=== PATIENT | female | born 1950 | race Two or more races ===

== ENCOUNTER 2021-05-26 22:58 | Inpatient (IN) | payer MEDICARE, OTHER ==
[~2021-05-26] VITALS: Ht 154.9 cm; Wt 59.9 kg
--- NOTE | 2021-05-26 23:10 | NUR ---
PT WINTER BENTLEY FROM [facility] FOR MEDICAL CLEARANCE. PT A/O X2, DENIES ANY PAIN/DISCOMFORT. NO SOB OR LABORED BREATHING. DENIES SI, NO AUDIO OR VISUAL HALLUCINATIONS. NOTED TO BE CALM AND COOPERATIVE. DR. JIN AT BEDSIDE, MSE IN PROGRESS.
[2021-05-27] MEDS ORDERED: CITA20TA16 PO (00:04)
[2021-05-27] MEDS ORDERED: OLAN5TAB70 PO (00:04)
[2021-05-27 00:22] LABS: *BILIRUBIN,URIN NEGATIVE (NEGATIVE); *BLOOD, URINE NEGATIVE (NEGATIVE); *CLARITY,URINE CLEAR (CLEAR); *COLOR,URINE YELLOW (YELLOW); *KETONES,URINE NEGATIVE (NEGATIVE); *UROBILINOGEN,URINE 0.2 E.U./dl (NORMAL); LEUKOCYTE ESTERASE ,URINE 1+ (NEGATIVE); NITRITE, URINE NEGATIVE (NEGATIVE); UGLUCOSE NEGATIVE (NEGATIVE)
[2021-05-27 00:23] LABS: MEAN CORPUSCULAR HEMOGLOBIN 32.7 uug (24.7-32.8); MEAN CORPUSCULAR VOLUME 96.6 fL (75.5-95.3); PLATELET COUNT (AUTO) 269 K/uL (179-408)
[2021-05-27 00:27] LABS: ETHANOL < 3 MG/DL (0-0)
[2021-05-27 00:32] LABS: ALANINE AMINOTRANSFERASE 87 U/L (14-59); ALKALINE PHOSPHATASE 81 U/L (50-136); ASPARTATE AMINOTRANSFERASE 56 U/L (15-37); BILIRUBIN,DIRECT 0.1 mg/dL (0.0-0.2); BILIRUBIN,TOTAL 0.3 mg/dL (0.2-1.0); CARBON DIOXIDE 28 mmol/L (21-32); CHLORIDE 105 mmol/L (98-107); CREATININE 0.6 mg/dL (0.6-1.3); GLUCOSE 110 mg/dL (74-106); TOTAL PROTEIN, SERUM 8.3 g/dL (6.4-8.2); UREA NITROGEN, BLOOD 19 mg/dL (7-18)
[2021-05-27 00:33] LABS: BACTERIA,URINE FEW /HPF (NONE SEEN); RBC,URINE 0-3 /HPF (0-3); SQUAMOUS EPITHELIAL CELL,UR MODERATE /HPF (NONE SEEN)
[2021-05-27 00:34] LABS: ACETAMINOPHEN < 2.0 ug/mL (10-30)
[2021-05-27 00:36] LABS: *AMPHETAMINE, URINE NEGATIVE (NEGATIVE); *CANNABINOID, URINE NEGATIVE (NEGATIVE); *COCCAINE, URINE NEGATIVE (NEGATIVE); *OPIATE, URINE NEGATIVE (NEGATIVE); *PHENCYCLIDINE SCREEN,URINE NEGATIVE (NEGATIVE)
[2021-05-27 00:40] LABS: THYROID STIMULATING HORMONE 6.589 mIU/mL (0.358-3.740)
--- NOTE | 2021-05-27 01:40 | NUR ---
Patient is resting comfortably in bed, watching TV.
[2021-05-27] MEDS ORDERED: NITROFURANTOIN/NITROFURAN MAC 100 MG CAPSULE PO ONE ×2 (02:15→02:27)
--- NOTE | 2021-05-27 02:28 | NUR ---
GAVE REPORT TO WESTON MIJARES.
[2021-05-27] MEDS ORDERED: BLOOD SUGAR DIAGNOSTIC 1 EACH STRIP VI ONE (03:15)
[2021-05-27] MEDS ORDERED: MAGNESIUM HYDROXIDE 30 ML LIQUID UDC PO PRN (03:15)
[2021-05-27 03:16] VITALS: BP 107/81
[2021-05-27] MEDS: LORAZEPAM 1 MG TABLET PO PRN (03:52)
--- NOTE | 2021-05-27 04:16 | NUR ---
GPS: Admitted to unit earlier a 71 yr.old female who was medically cleared in our E.R. Pt.is under the care of /. Pt.is on a 72 hour hold for GD. Pt.lives at home alone and has been walking into traffic,has disorganized thoughts,and unable to care for self,per hold. Pt.is AOx1-2. Uncooperative,labile,easily irritable,and appears to be responding to internal stimuli. Refused body check despite explanation of importance. Personal belongings list completed. Pt's rights handbook given. Unit rules explained. Re-directed and re-assured prn. Showered and was given Ativan 1mg PO for anxiety. Will continue to monitor. Fall precautions initiated.
--- NOTE | 2021-05-27 06:01 | NUR ---
GPS: Pt.hardly slept tonight. Up on rashi-chair in front of nurses station for safety. Less anxious,irritable,labile. Responds to internal stimuli. Re-directed prn. Assisted in going to the bathroom for elimination purposes. Needs attended. Will continue to monitor.
[2021-05-27 07:30] VITALS: BP 101/77
[2021-05-27] MEDS: NICOTINE 21 MG/24HR PATCH TD SCH (08:13)
[2021-05-27] MEDS: ESCITALOPRAM OXALATE 10 MG TABLET PO SCH (10:58)
--- NOTE | 2021-05-27 11:13 | NUR ---
CHEPE PC Hearing: Patient had 5250 probable cause hearing today and it was upheld for grave disability.
--- NOTE | 2021-05-27 11:53 | NUR ---
CHEPE Corporate Treasury Analystcentrifugal casting machine tender: CHEPE spoke with patient's adult protective caseworker Isael from [facility] ([phone]) and collected collateral information. Isael stated that the patient lives alone and has no social support. Isael stated patient dis-enrolled herself from services. Patient has a son who lives in a different state and is not involved in her care Fritz ([phone]), SW left a voicemail for him as well. Isael and this SW discussed safest discharge plan for the patient would be a SNF as Isael stated patient is being evicted from her home. CHEPE will coordinate appropriate SNF placement for the patient in [facility] and Isael stated if they find placement in [place] they would transfer her back there.
--- NOTE | 2021-05-27 14:36 | NUR ---
CHEPE Initial Discharge Plan: Patient resides at home [address] [place], [place] [address] alone. Pt is unable to care for herself alone. CHEPE spoke with patient's family preservation caseworker from [facility] ([phone]) and discussed patient will need SNF placement. CHEPE will continue to work with patient and MD to ensure a safe and proper discharge plan.
[2021-05-27] MEDS: NITROFURANTOIN/NITROFURAN MAC 100 MG CAPSULE PO SCH ×2 (16:03→23:04)
[2021-05-27 16:29] VITALS: BP 104/77
--- NOTE | 2021-05-27 16:30 | NUR ---
Gps/Interactive Digital Media Specialist- Left message for Shani Bui DNP, regarding results of patient's UA., orders received. Patient was instructed to drink adequate fluid intake.. Ambulates around uses FWW.
[2021-05-27 20:00] VITALS: BP 128/79
[2021-05-27] MEDS: QUETIAPINE FUMARATE 25 MG TABLET PO SCH (20:26)
[2021-05-28] MEDS: ZOLPIDEM 5 MG TABLET PO PRN ×2 (00:45→21:18)
--- NOTE | 2021-05-28 06:43 | NUR ---
GPS: Pt.slept 7.45 last night. No adverse reactions noted from atb.therapy. Less anxious and more re-directable. No increased agitation noted. Fall precautions observed.
[2021-05-28 08:21] VITALS: BP 105/66
[2021-05-28] MEDS: NICOTINE 21 MG/24HR PATCH TD SCH (08:23)
[2021-05-28] MEDS: NITROFURANTOIN/NITROFURAN MAC 100 MG CAPSULE PO SCH ×2 (08:23→20:08)
[2021-05-28] MEDS: ESCITALOPRAM OXALATE 10 MG TABLET PO SCH (08:23)
--- NOTE | 2021-05-28 13:12 | NUR ---
GPS: Nursing Notes: Mood Disturbance: Manic: Labile: Patient is awake and responding to her name, needs prompting to participate in therapeutic groups, compliant with her medications, A/Ox2, impaired judgment, gets easily irritable when redirected, ambulatory, but resistant to use the fww, redirected and reoriented during shift, loud and rambling speech at times, unable to formulate a viable plan for self care, verbally castillo for safety, denies SI/HI, unkempt appearance, continue to monitor for safety, continue with treatment plan.
[2021-05-28 16:34] VITALS: BP 133/79
[2021-05-28] MEDS: LORAZEPAM 1 MG TABLET PO PRN (19:50)
[2021-05-28 20:00] VITALS: BP 111/75
[2021-05-28] MEDS: QUETIAPINE FUMARATE 25 MG TABLET PO SCH (20:08)
[2021-05-29] MEDS: LORAZEPAM 1 MG TABLET PO PRN ×2 (01:59→21:54)
--- NOTE | 2021-05-29 02:22 | NUR ---
Received patient at the start of the shift, mumbling and stumbling around. Assisted patient to a Miriam chair for safety. The patient was awake and knew she was in the [facility], but that was the extent of any meaningful conversation. This patient is very forgetful and continues to disobey the unit rules and acts impulsively. At one point, the patient was having a yelling match with the other patient in her room. They were d/t the fact they were arguing and keeping each other awake during the night with non stop talking with each other and themselves. Food and fluids were provided during the shift as well as frequent trips to the bathroom. The patient was unable to stay in bed and kept getting up. In order to keep the patient safe, again she went to a chair at the station. Medications are having little to no affect on this patient. Safety stratiges are in place, redirection and reorientation provided frequently.Monitoring for behavior escalation, hallucinations and continuing with the plan of care. Encouraging patient to use the FWW when ambulating at all times.
[2021-05-29 07:30] VITALS: BP 113/68
[2021-05-29] MEDS: ESCITALOPRAM OXALATE 10 MG TABLET PO SCH (08:25)
[2021-05-29] MEDS: NITROFURANTOIN/NITROFURAN MAC 100 MG CAPSULE PO SCH ×2 (08:25→21:54)
[2021-05-29] MEDS: NICOTINE 21 MG/24HR PATCH TD SCH (08:25)
[2021-05-29 15:52] VITALS: BP 134/81
--- NOTE | 2021-05-29 17:20 | NUR ---
GPS: Nursing Notes: Thought Disorder: Patient is awake and responding to her name, disoriented to time, stated "I don't know..", impaired judgment, believes that she is , "I am afraid.. I am going to loss my baby..", redirected and reoriented during shift, gets easily irritable when redirected, unable to formulate a viable plan for self care, responding to external stimuli by shouting when another patient is shouting, argumentative at times, continue to monitor for safety, continue with treatment plan.
[2021-05-29 20:02] VITALS: BP 126/71
[2021-05-29] MEDS: QUETIAPINE FUMARATE 25 MG TABLET PO SCH (21:54)
[2021-05-30] MEDS: ZOLPIDEM 5 MG TABLET PO PRN ×2 (01:30→21:43)
--- NOTE | 2021-05-30 06:21 | NUR ---
Pt is A+Ox2, restless, anxious, attention-seeking, and disorganized. Pt uses her FWW backwards and requires frequent reminders to use it correctly. Pt is delusional and believe she is , and somewhat hesitant to take her medications. Pt provided reality orientation as needed. Late in the shift, Pt pulled the fire alarm for no apparent reason, then yelled "I'm sorry!" repeatedly. Pt reminded of unit rules and administered Ambien 5mg to minimize restlessness and encourage sleep. Pt slept for 2 hours, then woke up and remained awake for the rest of the shift, though more redirectable. Denies SI, verbally contracts for safety. VS stable, denied pain.
[2021-05-30 08:13] VITALS: BP 126/79
[2021-05-30] MEDS: NICOTINE 21 MG/24HR PATCH TD SCH (08:21)
[2021-05-30] MEDS: NITROFURANTOIN/NITROFURAN MAC 100 MG CAPSULE PO SCH ×2 (08:21→20:02)
[2021-05-30] MEDS: ESCITALOPRAM OXALATE 10 MG TABLET PO SCH (08:21)
[2021-05-30 08:31] LABS: HEMATOCRIT 39.6 % (31.2-41.9); MEAN CORPUSCULAR HEMOGLOBIN 32.5 uug (24.7-32.8); PLATELET COUNT (AUTO) 250 K/uL (179-408)
[2021-05-30 08:51] LABS: ALANINE AMINOTRANSFERASE 94 U/L (14-59); ALKALINE PHOSPHATASE 102 U/L (50-136); ASPARTATE AMINOTRANSFERASE 59 U/L (15-37); BILIRUBIN,TOTAL 0.4 mg/dL (0.2-1.0); CARBON DIOXIDE 27 mmol/L (21-32); CHLORIDE 103 mmol/L (98-107); CREATININE 0.6 mg/dL (0.6-1.3); GLUCOSE 94 mg/dL (74-106); POTASSIUM 4.2 mmol/L (3.5-5.1); TOTAL PROTEIN, SERUM 8.6 g/dL (6.4-8.2); UREA NITROGEN, BLOOD 19 mg/dL (7-18)
--- NOTE | 2021-05-30 12:17 | NUR ---
GPS: Nursing Notes: Courtesy Call for Neurology Consultation: Per Dr. Yoon request, called Dr. Resendiz for neurology consultation, Dr. Resendiz would see the patient today or tomorrow, continue to monitor for safety, continue with treatment plan.
[2021-05-30 16:16] VITALS: BP 137/86
[2021-05-30] MEDS: LORAZEPAM 1 MG TABLET PO PRN ×2 (16:58→23:00)
[2021-05-30 19:55] VITALS: BP 115/58
[2021-05-30] MEDS: QUETIAPINE FUMARATE 100 MG TABLET PO SCH (20:02)
[2021-05-30] MEDS ORDERED: QUETIAPINE FUMARATE 25 MG TABLET PO SCH (21:00)
--- NOTE | 2021-05-30 23:00 | NUR ---
GPS: Pt.is anxious,restless,labile,attention-seeking and disorganized. Re-directed frequently. Ativan 1mg PO given at this time. Re-assured prn. Will continue to monitor.
--- NOTE | 2021-05-31 07:11 | NUR ---
GPS: Pt.slept for only 2.30 last night despite getting a sleeping pill for insomnia. Less anxious now and more re-directable. Still delusional and labile. Will continue to re-direct prn.
[2021-05-31 07:30] VITALS: BP 114/72
[2021-05-31] MEDS: NITROFURANTOIN/NITROFURAN MAC 100 MG CAPSULE PO SCH ×2 (08:19→20:04)
[2021-05-31] MEDS: ESCITALOPRAM OXALATE 10 MG TABLET PO SCH (08:19)
[2021-05-31] MEDS: NICOTINE 21 MG/24HR PATCH TD SCH (08:19)
--- NOTE | 2021-05-31 09:50 | NUR ---
CHEPE SNF Referral: CHEPE faxed patient's referral packet to [facility] ( ) attention to Esperanza for review.
--- NOTE | 2021-05-31 09:51 | NUR ---
CHEPE Culture Media Laboratory Assistantlive in companion: CHEPE spoke with patient's residential case manager Isael from [facility] ([phone]) and discussed updated discharge planning. Emigdio stated they are agreeable with placing the patient locally in [place] for SNF placement. SW will update Emigdio on placement.
--- NOTE | 2021-05-31 11:52 | NUR ---
GPS: Nursing Notes: Thought Disorder: Patient is awake and responding to her name, impaired judgment, disoriented, disorganized, believes that she is , "I am afraid... I don't want to loss my baby..", rubbing her abdomen when talking about her delusion, unable to formulate a viable plan for self care, putting napkins around her wrist and around her head, continue to monitor for safety, continue with treatment plan.
--- NOTE | 2021-05-31 12:11 | NUR ---
CHEPE PC Hearing: Patient had 5250 probable cause hearing today and it was upheld for grave disability.
[2021-05-31] MEDS: MAG HYDROX/AL HYDROX/SIMETH 30 ML LIQUID UDC PO PRN (13:26)
[2021-05-31] MEDS ORDERED: IBUPROFEN 200 MG TABLET PO PRN (15:00)
[2021-05-31 16:10] VITALS: BP 118/67
[2021-05-31] MEDS: LORAZEPAM 1 MG TABLET PO PRN (16:20)
[2021-05-31] MEDS: MIRTAZAPINE 15 MG TABLET PO SCH (20:04)
[2021-05-31] MEDS: QUETIAPINE FUMARATE 100 MG TABLET PO SCH (20:04)
[2021-05-31 22:55] VITALS: BP 126/70
[2021-06-01] MEDS: LORAZEPAM 1 MG TABLET PO PRN (03:49)
--- NOTE | 2021-06-01 03:50 | NUR ---
GPS: Pt.is awake,anxious,disorganized,intrusive and with labile mood. Easily irritable when being re-directed and when staff sets limits on her. Poor impulse control. Insight and judgement impaired. Safe environment provided. Ativan 1mg PO given. Will monitor effectiveness.
[2021-06-01 07:30] VITALS: BP 97/62
[2021-06-01] MEDS: NICOTINE 21 MG/24HR PATCH TD SCH (08:46)
[2021-06-01] MEDS: QUETIAPINE FUMARATE 25 MG TABLET PO SCH ×2 (10:46→16:39)
[2021-06-01 16:00] VITALS: BP 132/84
--- NOTE | 2021-06-01 18:34 | NUR ---
GPS: PT WITH EPISODE OF ACTING OUT. DANCING LIKE AND WALKING LIKE SLOW MOTION. PT WITH EPISODE OF LAYING ON THE FLOOR ON THE HALLWAY. VERBALLY ABUSIVE EPISODE NOTED WHEN PT APPROACHED OTHER PT. PT ALWAYS ASK FOR HER ANTI- DEPRESSION MEDICATION. COOPERATIVE WITH CARE AND COMPLIANT WITH MEDICATIONS. NO AGITATION NOTED.
[2021-06-01 20:03] VITALS: BP 116/62
[2021-06-01] MEDS: QUETIAPINE FUMARATE 100 MG TABLET PO SCH (20:17)
[2021-06-01] MEDS: MIRTAZAPINE 15 MG TABLET PO SCH (20:18)
[2021-06-01] MEDS: ZOLPIDEM 5 MG TABLET PO PRN (21:57)
[2021-06-02] MEDS: LORAZEPAM 1 MG TABLET PO PRN (01:18)
--- NOTE | 2021-06-02 04:54 | NUR ---
Pt very restless throughout the night, difficult to be redirected. Ambien and Ativan given without much affect. Denies SI or HI at this time. Compliant with all medications given, however is occasionally verbally abusive. No acute distress noted.
[2021-06-02 07:30] VITALS: BP 127/84
[2021-06-02] MEDS: NICOTINE 21 MG/24HR PATCH TD SCH (08:31)
[2021-06-02] MEDS: QUETIAPINE FUMARATE 25 MG TABLET PO SCH ×2 (08:31→17:03)
--- NOTE | 2021-06-02 09:39 | NUR ---
SW Orthotic Finish Grinding TechnicianHigher Level Teaching Assistant CHEPE spoke with patient's continuous pillowcase cutter Sharon from [facility] ([phone]) and discussed discharge planning. Sharon stated they are agreeable with placing the patient locally in [place] for SNF placement. CHEPE will update Sharon on placement.
--- NOTE | 2021-06-02 15:49 | NUR ---
GPS: SPOKE WITH PT SON ASHLEY FONTANEZ, INFORMED ABOUT PT CONDITION. PER SON, DID NOT GET A CALL BECAUSE HE HAS A NEW NUMBER WHICH IS . PT AND SON TALKED FOR A WHILE AND SON HAPPY TO KNOW THAT PT IS HERE IN THE HOSPITAL AND GETTING PROPER TREATMENT.
[2021-06-02 16:00] VITALS: BP 145/71
--- NOTE | 2021-06-02 17:43 | NUR ---
GPS: PT STAYED ALL DAY PACING THE HALLWAY AND MAKING WEIRD AND BIZAARE MOVEMENTS. PT ALERT AND ORIENTED AND ABLE TO COMPREHEND WHEN BEING ASKED. PT HAD DINNER ON BED. COMPLIANT WITH MEDS. PT HAS BEEN UP ALL DAY AND AWAKE SINCE LAST NIGHT. PT WITH EPISODE OF BEING LOUD AND VERBALLY ABUSIVE TO OTHER, BUT REDIRECTABLE WHEN ASKED TO BE NICE AND QUIET.
[2021-06-02 20:09] VITALS: BP 90/57
[2021-06-02] MEDS: MIRTAZAPINE 15 MG TABLET PO SCH (20:20)
[2021-06-02] MEDS: QUETIAPINE FUMARATE 100 MG TABLET PO SCH (20:20)
[2021-06-02] MEDS: TEMAZEPAM 15 MG CAPSULE PO PRN (20:21)
[2021-06-03] MEDS: HYDROXYZINE PAMOATE 25 MG CAPSULE PO PRN (06:48)
[2021-06-03 07:30] VITALS: BP 123/84
[2021-06-03] MEDS: NICOTINE 21 MG/24HR PATCH TD SCH (08:07)
[2021-06-03] MEDS: QUETIAPINE FUMARATE 25 MG TABLET PO SCH ×2 (08:07→16:41)
--- NOTE | 2021-06-03 11:04 | NUR ---
SW Family Contact SW spoke with patient's son Fritz Sheridan ([phone]) and discussed treatment and discharge plan. SW will coordinate appropriate placement options.
[2021-06-03 16:53] VITALS: BP 124/86
[2021-06-03 19:53] VITALS: BP 118/72
[2021-06-03] MEDS: QUETIAPINE FUMARATE 100 MG TABLET PO SCH (20:05)
[2021-06-03] MEDS: MIRTAZAPINE 15 MG TABLET PO SCH (20:06)
[2021-06-03] MEDS: TEMAZEPAM 15 MG CAPSULE PO PRN (23:08)
--- NOTE | 2021-06-04 01:15 | NUR ---
Received pt ambulating in the hallway. Assisted pt back to bed. No acute distress noted. Denies SI, AV, or VH. Safety measures maintained. Will continue to monitor.
--- NOTE | 2021-06-04 01:40 | NUR ---
Pt is disorganized in thought process, restless, amxious, and attention-seeking. Pt is delusional and focused on her preceived "". Pt denies AH/VH, but is clearly preoccupied and paces the hallway, rambling and muttering unintelligibly, responding to internal stimuli. Pt is constantly around the nurse's station asking for items she already has and standing in front of the doorway despite directions from staff to not spine surgeon the doorways. Pt was administered Restoril 15mg to minimize restlessness and promote sleep. Denied pain, VS stable.
[2021-06-04 07:30] VITALS: BP 119/70
[2021-06-04] MEDS: NICOTINE 21 MG/24HR PATCH TD SCH (08:05)
[2021-06-04] MEDS: QUETIAPINE FUMARATE 25 MG TABLET PO SCH ×2 (08:05→16:30)
[2021-06-04 16:00] VITALS: BP 115/76
[2021-06-04 20:00] VITALS: BP 125/71
[2021-06-04] MEDS: QUETIAPINE FUMARATE 100 MG TABLET PO SCH (20:05)
[2021-06-04] MEDS: MIRTAZAPINE 15 MG TABLET PO SCH (20:05)
[2021-06-05 07:30] LABS: BILIRUBIN,TOTAL 0.4 mg/dL (0.2-1.0); CREATININE 0.6 mg/dL (0.6-1.3); POTASSIUM 3.8 mmol/L (3.5-5.1); TOTAL PROTEIN, SERUM 7.9 g/dL (6.4-8.2)
[2021-06-05 07:40] VITALS: BP 124/77
[2021-06-05] MEDS: QUETIAPINE FUMARATE 25 MG TABLET PO SCH ×3 (08:18→16:19)
[2021-06-05] MEDS: NICOTINE 21 MG/24HR PATCH TD SCH (08:19)
[2021-06-05 15:52] VITALS: BP 133/83
--- NOTE | 2021-06-05 16:00 | NUR ---
Pt mumbling to herself. Pt denies visual and auditory hallucinations. Pt pacing in hallway. " Im just getting started." Used therapeutic communication but pt wont expand or share her thoughts.
[2021-06-05] MEDS: QUETIAPINE FUMARATE 200 MG TABLET PO SCH (20:51)
[2021-06-05] MEDS: MIRTAZAPINE 15 MG TABLET PO SCH (20:52)
[2021-06-05] MEDS ORDERED: QUETIAPINE FUMARATE 100 MG TABLET PO SCH (21:00)
[2021-06-05 21:41] VITALS: BP 123/71
[2021-06-05] MEDS: TEMAZEPAM 15 MG CAPSULE PO PRN (22:43)
--- NOTE | 2021-06-06 04:35 | NUR ---
Received to care, ambulating about the unit, talking(sometimes mumbling) to self, but pleasant and cooperative. Bedtime snack was given. Compliant with medications and staff direction. She was having trouble sleeping, so PRN restoril was given at 2243. She finally fell asleep, and hour, or so after that. She is now awake, talking to her self, in her room. Encouraged to try to get some more sleep. Will continue to monitor closely.
[2021-06-06] MEDS: HYDROXYZINE PAMOATE 25 MG CAPSULE PO PRN ×2 (04:52→21:14)
--- NOTE | 2021-06-06 04:53 | NUR ---
PRN Vistaril given at her request, for anxiety.
--- NOTE | 2021-06-06 06:00 | NUR ---
Appears to have gone back to sleep. but only slept 3.5 hours, total, for the whole night.
[2021-06-06 07:35] VITALS: BP 126/76
[2021-06-06] MEDS: NICOTINE 21 MG/24HR PATCH TD SCH (08:29)
[2021-06-06] MEDS: QUETIAPINE FUMARATE 25 MG TABLET PO SCH ×3 (08:29→16:14)
--- NOTE | 2021-06-06 13:00 | NUR ---
SW Family Contact SW left voice mail for patient's son Fritz Sheridan ([phone]) with updates regarding discharge.
--- NOTE | 2021-06-06 13:01 | NUR ---
SW Lace Burn Out TenderHosiery Operator SW left voice mail for patient's employment case manager Sharon from [facility] informing of mutual patient discharge 06/07/21. Requested call back if there are any questions.
--- NOTE | 2021-06-06 13:02 | NUR ---
SW Journeyman Sheet Metal WorkerConsulting Analyst CHEPE spoke with pt's window caser Isael Cassidy ([phone]) with [facility]. CHEPE provided discharge planning updates.
--- NOTE | 2021-06-06 15:05 | NUR ---
SW Sound EditorKitchen Food Server CHEPE faxed pt's cyanide case hardener Isael Cassidy ([phone]) with [facility] to provide pt's clinicals.
[2021-06-06 15:36] VITALS: BP 129/83
[2021-06-06 20:04] VITALS: BP 128/69
[2021-06-06] MEDS: MIRTAZAPINE 15 MG TABLET PO SCH (21:30)
[2021-06-06] MEDS: QUETIAPINE FUMARATE 200 MG TABLET PO SCH (21:30)
[2021-06-06] MEDS: TEMAZEPAM 15 MG CAPSULE PO PRN (22:57)
--- NOTE | 2021-06-07 01:32 | NUR ---
received to care, pacing the hallway, with garbled speech, yelling intermittently, wandering from room, to room. PRN vistaril wa sgiven for anxiety at 2113, 3with [id number] to no effects. She had her bedtime medications, fluids, and snacks. She remained restless, so she was given PRN restoril at 3. She continued to be restless, wandering occasionally in and out of her room, seeming confused, not knowing why she came out. She was redirected back to her room several times, but finally fell asleep. As of now, she continues to sleep. No distress noted. Will continue to monitor closely.
--- NOTE | 2021-06-07 05:00 | NUR ---
Slept 3 hours, total.
[2021-06-07 07:30] VITALS: BP 134/78
[2021-06-07] MEDS: QUETIAPINE FUMARATE 25 MG TABLET PO SCH ×2 (08:08→12:57)
[2021-06-07] MEDS: NICOTINE 21 MG/24HR PATCH TD SCH (08:08)
[2021-06-07] MEDS: MAG HYDROX/AL HYDROX/SIMETH 30 ML LIQUID UDC PO PRN (11:03)
--- NOTE | 2021-06-07 13:00 | NUR ---
SW Discharge Note Patient will be discharged to [facility] Facility [address] [place] [address] ([phone]). Patient will be provided Ambulance transportation at 1PM. Spoke with Esperanza, Admin Coordinator at the facility who states they are ready to accept the patient today. Patient is aware and agreeable with discharge plans. Patient is alert and oriented x3, is unable to plan for self-care at this time; however, is willing to accept care at [facility]. Patient denies any suicidal or homicidal ideation. Patient will follow-up at the facility with Dr. Yoon Psychiatrist and Dr. Chamorro Food Consultant. Patient presents with calm mood and congruent affect.
--- NOTE | 2021-06-07 13:30 | NUR ---
GPS: Nursing Notes: Discharge Notes: Patient is awake and responding to her name, cooperative with nursing care, compliant with her medications, following staff directions, denies SI/HI, denies AH/VH, denies pain or discomfort, denies SOB, discharge to [facility], SNF [place] [address] [place] [address] . Patient will follow up with Dr. Yoon (psychiatrist) and Dr. Chamorro (trailer sections assembler) at the facility for aftercare, took all her belongings with her. Her son - Fritz informed of discharge by social security specialist.
[2021-06-07] MEDS ORDERED: NICO-671 TD (22:06)
[2021-06-07] MEDS ORDERED: HYDR-501 PO (22:06)
[2021-06-07] MEDS ORDERED: IBUP-76 PO (22:06)
[2021-06-07] MEDS ORDERED: MAG30ORA PO (22:06)
[2021-06-07] MEDS ORDERED: QUET200T PO (22:06)
[2021-06-07] MEDS ORDERED: QUET25TA PO (22:06)
[2021-06-07] MEDS ORDERED: MAGN400O6 PO (22:06)
[2021-06-07] MEDS ORDERED: TEMA15CA PO (22:06)
[2021-06-07] MEDS ORDERED: MIRT-93 PO (22:06)
== END 2021-06-07 13:30 | DRG 885 ==
LOC: ER 22:58 → GPS 05-27 02:47
PROVIDERS: ADMIT Psychiatry & Neurology Psychiatry; ATTEND Nurse Practitioner Acute Care
DX: F25.1 Schizoaffective disorder, depressive type (principal); F01.50 Vascular dementia, unspecified severity, without behavioral disturbance, psychotic disturbance, mood disturbance, and anxiety; B19.20 Unspecified viral hepatitis C without hepatic coma; N39.0 Urinary tract infection, site not specified; E03.9 Hypothyroidism, unspecified; J44.9 Chronic obstructive pulmonary disease, unspecified; I10 Essential (primary) hypertension; E78.5 Hyperlipidemia, unspecified; Z90.49 Acquired absence of other specified parts of digestive tract; Z88.6 Allergy status to analgesic agent; Z91.14 Patient's other noncompliance with medication regimen; Z79.899 Other long term (current) drug therapy; R79.89 Other specified abnormal findings of blood chemistry
CPT/HCPCS: 36415; 70450; 84443; 85025; 87086; 93005; 97161; A4663; G0480

== ENCOUNTER 2021-06-07 16:21 | Inpatient (IN) | payer MEDICARE, OTHER ==
[~2021-06-07] VITALS: Ht 180.3 cm; Wt 59.9 kg
--- NOTE | 2021-06-07 16:25 | NUR ---
Pt triaged and waiting in the hallway in [facility] as there are no ER beds available at this time.
[2021-06-07 17:09] LABS: HEMATOCRIT 39.5 % (31.2-41.9); MEAN CORPUSCULAR HEMOGLOBIN 33.3 uug (24.7-32.8); MEAN CORPUSCULAR VOLUME 96.6 fL (75.5-95.3); PLATELET COUNT (AUTO) 254 K/uL (179-408)
[2021-06-07 17:10] LABS: CARBON DIOXIDE 28 mmol/L (21-32); CHLORIDE 104 mmol/L (98-107); CREATININE 0.7 mg/dL (0.6-1.3); GLUCOSE 88 mg/dL (74-106); POTASSIUM 3.9 mmol/L (3.5-5.1); UREA NITROGEN, BLOOD 16 mg/dL (7-18)
[2021-06-07 17:12] LABS: ETHANOL < 3 MG/DL (0-0)
[2021-06-07 17:16] LABS: ALANINE AMINOTRANSFERASE 95 U/L (14-59); ALKALINE PHOSPHATASE 123 U/L (50-136); ASPARTATE AMINOTRANSFERASE 58 U/L (15-37); BILIRUBIN,DIRECT 0.1 mg/dL (0.0-0.2); BILIRUBIN,TOTAL 0.4 mg/dL (0.2-1.0); TOTAL PROTEIN, SERUM 8.8 g/dL (6.4-8.2)
[2021-06-07 17:18] LABS: ACETAMINOPHEN < 2.0 ug/mL (10-30)
--- NOTE | 2021-06-07 17:55 | NUR ---
Pt moved to room 4a.
[2021-06-07] MEDS ORDERED: KETOROLAC TROMETHAMINE 15 MG INJ IM ONE (18:30)
[2021-06-07] MEDS ORDERED: ONDANSETRON ODT 4 MG TAB.RAPDIS SL ONE (18:30)
[2021-06-07] MEDS ORDERED: ONDANSETRON ODT 4 MG TAB.RAPDIS ONE (20:50)
[2021-06-07] MEDS ORDERED: KETOROLAC TROMETHAMINE 15 MG INJ ONE (20:50)
[2021-06-07] MEDS ORDERED: NICO-671 TD (22:06)
[2021-06-07] MEDS ORDERED: HYDR-501 PO (22:06)
[2021-06-07] MEDS ORDERED: MIRT-93 PO (22:06)
[2021-06-07] MEDS ORDERED: QUET200T PO (22:06)
[2021-06-07] MEDS ORDERED: IBUP-76 PO (22:06)
[2021-06-07] MEDS ORDERED: MAG30ORA PO (22:06)
[2021-06-07] MEDS ORDERED: QUET25TA PO (22:06)
[2021-06-07] MEDS ORDERED: MAGN400O6 PO (22:06)
[2021-06-07] MEDS ORDERED: TEMA15CA PO (22:06)
--- NOTE | 2021-06-07 22:18 | NUR ---
Pt. admitted to [facility], under care of Dr. ZAMORANO Belongs List completed
[2021-06-07 22:30] VITALS: BP 148/78
[2021-06-07] MEDS ORDERED: TEMAZEPAM 15 MG CAPSULE PO PRN (22:30)
[2021-06-07] MEDS ORDERED: hydrOXYzine HCL 25 MG TABLET PO PRN (22:30)
[2021-06-07] MEDS ORDERED: QUETIAPINE FUMARATE 200 MG TABLET PO SCH (22:30)
[2021-06-07] MEDS ORDERED: MAGNESIUM HYDROXIDE 30 ML LIQUID UDC PO PRN (22:30)
[2021-06-07] MEDS ORDERED: MAG HYDROX/AL HYDROX/SIMETH 30 ML LIQUID UDC PO PRN (22:30)
[2021-06-07] MEDS ORDERED: HALOPERIDOL LACTATE 5 MG/1 ML VIAL IM PRN (22:30)
[2021-06-08 04:00] VITALS: BP 107/69
[2021-06-08 06:42] LABS: HEMATOCRIT 38.8 % (31.2-41.9); MEAN CORPUSCULAR HEMOGLOBIN 32.6 uug (24.7-32.8); MEAN CORPUSCULAR VOLUME 96.8 fL (75.5-95.3); PLATELET COUNT (AUTO) 222 K/uL (179-408)
--- NOTE | 2021-06-08 07:21 | NUR ---
Pt admitted to med surg in stable condition. Denies pain or SOB. Pt very restless and unable to be distracted or reoriented. Pt placed in bed and given Restoril to aid in sleep, ineffective. Haldol IM given to patient, tolerated well. After Haldol, patient was relaxed and restlessness subsided. No distress noted. Respirations equal and unlabored. Will endorse to day shift.
[2021-06-08 07:45] LABS: BILIRUBIN,TOTAL 0.5 mg/dL (0.2-1.0); CREATININE 0.8 mg/dL (0.6-1.3); MAGNESIUM 2.2 mg/dL (1.8-2.4); POTASSIUM 3.8 mmol/L (3.5-5.1); TOTAL PROTEIN, SERUM 7.6 g/dL (6.4-8.2)
[2021-06-08] MEDS ORDERED: NICOTINE 14 MG/24HR PATCH TD SCH (09:00)
[2021-06-08] MEDS: QUETIAPINE FUMARATE 25 MG TABLET PO SCH ×3 (09:07→17:00)
[2021-06-08] MEDS: NICOTINE 21 MG/24HR PATCH TD SCH (09:14)
--- NOTE | 2021-06-08 10:34 | NUR ---
PATIENT SEEN AND EXAMINED BY SUNNY LIRA WITH NEW ORDERS AND NOTED
--- NOTE | 2021-06-08 11:30 | NUR ---
AMBULATORY COOPERATIVE ASSISTED TO THE BATHROOM VOIDED AND ASSISTED BACK TO BED NO S/S OF PAIN OR DISCOMFORTS NOT IN DISTRESS AT THIS TIME.
[2021-06-08 11:37] VITALS: BP 108/75
--- NOTE | 2021-06-08 12:16 | NUR ---
PATIENT SEEN BY CRISIS TEAM AND PLACED ON 72 HOUR HOLD PATIENT IS CONFUSED DISORIENTED AND UNABLE TO UNDERSTAND WHATS GOING ON.
--- NOTE | 2021-06-08 13:40 | NUR ---
PATIENT DISCHARGED TO MENTAL HEALTH UNIT BED 138B IN SATISFACTORY CONDITION WITH ALL HER PERSONAL BELONGINGS REPORT FOR CONTINUING CARE WAS GIVEN TO BEST AT U
--- NOTE | 2021-06-08 16:03 | NUR ---
Patient transferred from [facility] Unit to room 138-B. Patient's belongings removed and inventoried with patient, placed in contraband locker. Patient provided with orientation to unit rules and policies. Patient provided with patient's rights handbook and 5150 hold advisement. Patient provided with FWW for unsteady gait. Skin assessment completed by this manual writer, skin is intact. Patient states she is in severe pain in her abdomen because she is and she is giving soon. Patient provided with reality orientation and redirection. Patient provided with snacks and water. Patient is encouraged to communicate needs to staff appropriately.
[2021-06-08 16:27] VITALS: BP 122/72
[2021-06-08] MEDS: ENSURE ENLIVE (VAN) 240 ML LIQUID PO SCH (17:39)
[2021-06-08 20:11] VITALS: BP 153/87
[2021-06-08] MEDS ORDERED: QUETIAPINE FUMARATE 200 MG TABLET PO SCH (21:00)
[2021-06-08] MEDS ORDERED: MIRTAZAPINE 15 MG TABLET PO SCH ×2 (21:00)
[2021-06-09] MEDS ORDERED: MAG HYDROX/AL HYDROX/SIMETH 30 ML LIQUID UDC PO PRN (00:45)
[2021-06-09] MEDS ORDERED: MAGNESIUM HYDROXIDE 30 ML LIQUID UDC PO PRN (00:45)
[2021-06-09 07:30] VITALS: BP 114/62
[2021-06-09 09:00] LABS: BILIRUBIN,TOTAL 0.4 mg/dL (0.2-1.0); CREATININE 0.7 mg/dL (0.6-1.3); POTASSIUM 3.9 mmol/L (3.5-5.1); TOTAL PROTEIN, SERUM 8.1 g/dL (6.4-8.2)
[2021-06-09] MEDS: NICOTINE 21 MG/24HR PATCH TD SCH (09:00)
[2021-06-09] MEDS: ENSURE ENLIVE (VAN) 240 ML LIQUID PO SCH ×3 (11:02→17:33)
[2021-06-09] MEDS: risperiDONE 1 MG TABLET PO SCH ×2 (13:02→20:34)
[2021-06-09 16:00] VITALS: BP 118/78
[2021-06-09] MEDS: DIVALPROEX 250 MG TABLET.DR PO SCH (17:33)
[2021-06-09 20:00] VITALS: BP 103/73
[2021-06-09] MEDS: ZOLPIDEM 5 MG TABLET PO PRN (22:23)
[2021-06-10] MEDS: LORAZEPAM 0.5 MG TABLET PO PRN (04:45)
[2021-06-10] MEDS: IBUPROFEN 200 MG TABLET PO PRN (04:45)
[2021-06-10 07:30] VITALS: BP 121/76
[2021-06-10] MEDS: risperiDONE 1 MG TABLET PO SCH ×2 (08:33→20:24)
[2021-06-10] MEDS: DIVALPROEX 250 MG TABLET.DR PO SCH ×2 (08:33→16:33)
[2021-06-10] MEDS: NICOTINE 21 MG/24HR PATCH TD SCH (08:33)
[2021-06-10] MEDS: ENSURE ENLIVE (VAN) 240 ML LIQUID PO SCH ×3 (08:33→16:33)
--- NOTE | 2021-06-10 10:35 | NUR ---
PT RECEIVED AMBULATING UNIT HALLWAY. PARANOID AND DELUSIONAL. TALKING TO SELF RESPONDING TO INTERNAL STIMULI. EXHIBITING BIZARRE BEHAVIOR LIKE THROWING SELF ON FLOOR IN FRONT OF STAFF AND SITTING THERE. REQUIRES FREQUENT REDIRECTION. COMPLIANT WITH MEDICATIONS AT THIS TIME.
[2021-06-10 16:44] VITALS: BP 105/87
[2021-06-10 20:32] VITALS: BP 115/72
[2021-06-11] MEDS: ZOLPIDEM 5 MG TABLET PO PRN ×2 (01:26→22:27)
[2021-06-11 08:10] VITALS: BP 125/76
[2021-06-11] MEDS: risperiDONE 1 MG TABLET PO SCH ×2 (09:02→20:04)
[2021-06-11] MEDS: DIVALPROEX 250 MG TABLET.DR PO SCH ×2 (09:02→16:27)
[2021-06-11] MEDS: ENSURE ENLIVE (VAN) 240 ML LIQUID PO SCH ×3 (09:03→17:35)
--- NOTE | 2021-06-11 09:12 | NUR ---
SW Family Contact SW left a voicemail for patient's son, Fritz Sheridan ([phone]) requesting call back to discuss treatment and discharge plan. Waiting for ca call back.
--- NOTE | 2021-06-11 09:12 | NUR ---
SW Initial Discharge Note Pt was discharged to [facility] located at [address] [place] [address] ([phone]) and returned to [facility] the same day. Pt is unable to care for herself alone. CHEPE left a voicemail for patient's son, Fritz Sheridan ([phone]) requesting call back to discuss treatment and discharge plan. CHEPE left a voicemail for patient's case management assistant, Isael ([phone]) requesting call back to discuss treatment and discharge plan. CHEPE will continue to work with pt, family, case management assistant, and MD to ensure a safe and proper discharge plan.
--- NOTE | 2021-06-11 09:13 | NUR ---
SW Assistant Construction Superintendent Contact CHEPE left a voicemail for patient's rehabilitation case coordinator, Isael ([phone]) with [facility], requesting call back to discuss treatment and discharge plan. Waiting for a call back.
[2021-06-11] MEDS: NICOTINE 21 MG/24HR PATCH TD SCH (09:22)
--- NOTE | 2021-06-11 13:56 | NUR ---
Received patient awake in the hallway. A/O X 1 - 2 to person, place. Pt. affect is incoherent, disorganized, cooperative, pleasant, internal stimuli. Pt. is redirectable. Compliant with medications. Ambulates independently. Continent of bladder and bowel. Pt. is encourage to verbalize concerns. Fall and safety precautions implemented.
[2021-06-11 15:46] VITALS: BP 138/69
[2021-06-11 20:00] VITALS: BP 136/87
[2021-06-11] MEDS: LORAZEPAM 0.5 MG TABLET PO PRN (21:38)
[2021-06-12 07:37] VITALS: BP 110/78
--- NOTE | 2021-06-12 08:00 | NUR ---
Recd patient in bed c/o neck pain squirming and restless, ask patient to try too sit up she deidnt want to move . Oral intake fair . Medicated with motrin 200mg with good [id number] after 1 hour. Nicoderm patch applied to upper right back old one removed.
[2021-06-12] MEDS: NICOTINE 21 MG/24HR PATCH TD SCH ×2 (09:00→12:35)
[2021-06-12] MEDS: risperiDONE 1 MG TABLET PO SCH ×2 (09:23→20:35)
[2021-06-12] MEDS: DIVALPROEX 250 MG TABLET.DR PO SCH ×2 (09:23→16:43)
[2021-06-12] MEDS: ENSURE ENLIVE (VAN) 240 ML LIQUID PO SCH ×3 (09:26→16:43)
[2021-06-12] MEDS: IBUPROFEN 200 MG TABLET PO PRN (12:37)
[2021-06-12 15:58] VITALS: BP 116/69
--- NOTE | 2021-06-12 18:30 | NUR ---
patient more visible in afternoon and evening more verbal wanting to leave standing near front door, redirectable . Mood sad affect flat continue to monitor for safety.
[2021-06-12 20:06] VITALS: BP 112/64
[2021-06-12] MEDS: LORAZEPAM 0.5 MG TABLET PO PRN (21:06)
[2021-06-13] MEDS: ZOLPIDEM 5 MG TABLET PO PRN (00:32)
[2021-06-13 07:59] VITALS: BP 141/90
[2021-06-13] MEDS ORDERED: risperiDONE 1 MG TABLET PO SCH (09:00)
[2021-06-13] MEDS: risperiDONE 2 MG TABLET PO SCH ×2 (09:47→20:10)
[2021-06-13] MEDS: LORAZEPAM 0.5 MG TABLET PO PRN (09:48)
[2021-06-13] MEDS: ENSURE ENLIVE (VAN) 240 ML LIQUID PO SCH ×3 (09:48→17:30)
[2021-06-13] MEDS: DIVALPROEX 250 MG TABLET.DR PO SCH ×2 (09:48→17:30)
--- NOTE | 2021-06-13 15:02 | NUR ---
SW SNF Contact SW called [facility] ([phone]) and spoke with facundo Mata, who advised for different placement as pt really did not like [facility]. Esperanza explained pt refused to even enter SNF and was sent back to the hospital the day of her scheduled admission.
--- NOTE | 2021-06-13 15:28 | NUR ---
Firearms Report: Table Attendant completed and submitted a DOJ firearms report for 5150 grave disability certifications. A copy of report has been placed in patient chart.
[2021-06-13 15:57] VITALS: BP 114/63
--- NOTE | 2021-06-13 18:34 | NUR ---
more visible near end of shift disorganized and dis shelved continue to monitor for safety
[2021-06-13 19:55] VITALS: BP 116/62
[2021-06-14 08:00] VITALS: BP 107/70
--- NOTE | 2021-06-14 08:08 | NUR ---
SW SNF Referral SW faxed patient's referral packet to [facility] [address] [place] [address] (phone: [phone]; fax: [phone]) attention to facundo Tong and Maria, recreation program coordinator, for review.
[2021-06-14] MEDS: risperiDONE 2 MG TABLET PO SCH ×2 (09:24→20:06)
[2021-06-14] MEDS: DIVALPROEX 250 MG TABLET.DR PO SCH ×2 (09:24→17:02)
[2021-06-14] MEDS: NICOTINE 21 MG/24HR PATCH TD SCH (09:24)
[2021-06-14] MEDS: ENSURE ENLIVE (VAN) 240 ML LIQUID PO SCH ×3 (09:25→17:43)
[2021-06-14 15:56] VITALS: BP 113/75
[2021-06-14] MEDS: IBUPROFEN 200 MG TABLET PO PRN (15:57)
--- NOTE | 2021-06-14 16:03 | NUR ---
Pt. is A/O X 2 to person. Pt. affect is calm, quiet, cooperative. Compliant with medications. Ibuprofen 200 mg given at 15:55 for headache, will be monitored for effectiveness. Ambulates independently. Requires mini mal assistance with ADL. Emotional support provided. Fall and safety precautions implemented.
--- NOTE | 2021-06-14 21:00 | NUR ---
RECEIVED PATIENT IN THE HALLWAY. SHE IS NOTED A/O X 1. SHE IS A POOR HISTORIAN, SHE IS UNABLE TO HAVE A MEANINGFUL CONVERSATION WITH THIS BAG SHAKER. POOR INSIGHT AND JUDGMENT IS NOTED TO THE REASON FOR HER ADMISSION TO [facility]. SHE IS ABLE TO COMPLY WITH MEDICATION REGIMENT AT THIS TIME. PO FLUIDS AND SNACKS WERE GIVEN. V/S STABLE. SHE IS REASSURED FOR HER SAFETY. SAFETY AND FALL PRECAUTION IN PLACE. WILL CONTINUE TO MONITOR.
[2021-06-14 21:03] VITALS: BP 120/92
[2021-06-14] MEDS: ZOLPIDEM 5 MG TABLET PO PRN (22:43)
[2021-06-15] MEDS: LORAZEPAM 0.5 MG TABLET PO PRN (03:09)
[2021-06-15 07:30] VITALS: BP 116/77
[2021-06-15] MEDS: DIVALPROEX 250 MG TABLET.DR PO SCH ×4 (08:42→16:43)
[2021-06-15] MEDS: risperiDONE 2 MG TABLET PO SCH ×2 (08:42→20:05)
[2021-06-15] MEDS: NICOTINE 21 MG/24HR PATCH TD SCH (08:42)
[2021-06-15] MEDS: ENSURE ENLIVE (VAN) 240 ML LIQUID PO SCH ×3 (08:59→17:52)
[2021-06-15 16:00] VITALS: BP 122/84
[2021-06-15 20:17] VITALS: BP 122/84
[2021-06-15] MEDS: ZOLPIDEM 5 MG TABLET PO PRN (23:02)
[2021-06-16 07:30] VITALS: BP 109/63
[2021-06-16] MEDS: NICOTINE 21 MG/24HR PATCH TD SCH (10:30)
[2021-06-16] MEDS: DIVALPROEX 250 MG TABLET.DR PO SCH ×3 (10:30→18:58)
[2021-06-16] MEDS: risperiDONE 2 MG TABLET PO SCH ×2 (10:30→20:20)
[2021-06-16] MEDS: ENSURE ENLIVE (VAN) 240 ML LIQUID PO SCH ×3 (10:31→18:58)
--- NOTE | 2021-06-16 14:55 | NUR ---
CHEPE Discharge Plan Update CHEPE called and spoke with Katie ([phone]), stars coordinator at [facility] located at [address] [place] [address] ([phone]) to follow-up on referral. Per Katie, [facility] unable to accept pt due to pt not having dementia diagnosis.
--- NOTE | 2021-06-16 15:09 | NUR ---
Discharge Plan Update faxed patient's referral packet to [facility] [address] [place] [address] (phone: [phone]; fax: [phone]) attention to Shannon for review.
[2021-06-16 16:55] VITALS: BP 125/72
[2021-06-16 20:10] VITALS: BP 118/66
[2021-06-16] MEDS: LORAZEPAM 0.5 MG TABLET PO PRN (20:20)
[2021-06-17] MEDS: IBUPROFEN 200 MG TABLET PO PRN (03:52)
[2021-06-17] MEDS: LORAZEPAM 0.5 MG TABLET PO PRN ×2 (03:52→16:51)
--- NOTE | 2021-06-17 03:59 | NUR ---
Received patient at the start of the shift standing at the station. Awake, alert and oriented. The patient has been calm , cooperative with all medications and is eating well. Patient medicated x1 for pain and anxiety. No behavioral issues noted so far this shift. Continuing to monitor fo safety .
[2021-06-17 07:30] VITALS: BP 126/81
[2021-06-17] MEDS: DIVALPROEX 250 MG TABLET.DR PO SCH ×3 (09:26→16:51)
[2021-06-17] MEDS: ENSURE ENLIVE (VAN) 240 ML LIQUID PO SCH ×3 (09:27→16:52)
[2021-06-17] MEDS: risperiDONE 2 MG TABLET PO SCH ×2 (09:27→20:19)
[2021-06-17] MEDS: NICOTINE 21 MG/24HR PATCH TD SCH (09:28)
[2021-06-17 16:23] VITALS: BP 107/67
[2021-06-17 20:33] VITALS: BP 134/75
[2021-06-17] MEDS: ZOLPIDEM 5 MG TABLET PO PRN (21:29)
[2021-06-18] MEDS: LORAZEPAM 0.5 MG TABLET PO PRN ×2 (03:20→12:08)
[2021-06-18] MEDS: IBUPROFEN 200 MG TABLET PO PRN ×3 (03:22→22:04)
[2021-06-18 07:30] VITALS: BP_SYST 118; BP_SYST 130; BP_DIAS 72; BP_DIAS 77
[2021-06-18] MEDS: NICOTINE 21 MG/24HR PATCH TD SCH (09:00)
[2021-06-18] MEDS: ENSURE ENLIVE (VAN) 240 ML LIQUID PO SCH ×3 (09:01→16:17)
[2021-06-18] MEDS: risperiDONE 2 MG TABLET PO SCH ×2 (09:01→22:04)
[2021-06-18] MEDS: DIVALPROEX 250 MG TABLET.DR PO SCH ×3 (09:01→16:17)
--- NOTE | 2021-06-18 10:45 | NUR ---
Gps/Aquatics Director-Quiet, follows directions. Attended her group therapy this am, Had complained of upper back pain , was medicated her prn Motrim 1 tab. as ordered, verbalized adequate relief. .
[2021-06-18 20:00] VITALS: BP 98/62
[2021-06-19] MEDS: ZOLPIDEM 5 MG TABLET PO PRN (00:01)
[2021-06-19] MEDS: risperiDONE 2 MG TABLET PO SCH ×2 (08:13→20:36)
[2021-06-19] MEDS: DIVALPROEX 250 MG TABLET.DR PO SCH ×3 (08:13→16:37)
[2021-06-19] MEDS: NICOTINE 21 MG/24HR PATCH TD SCH (08:13)
[2021-06-19] MEDS: ENSURE ENLIVE (VAN) 240 ML LIQUID PO SCH ×3 (08:13→16:37)
[2021-06-19 08:24] VITALS: BP 95/78
[2021-06-19 16:00] VITALS: BP 141/81
[2021-06-19 20:18] VITALS: BP 130/76
[2021-06-20] MEDS: LORAZEPAM 0.5 MG TABLET PO PRN ×2 (05:17→09:53)
[2021-06-20 07:36] VITALS: BP 125/77
[2021-06-20] MEDS: DIVALPROEX 250 MG TABLET.DR PO SCH ×3 (08:39→17:26)
[2021-06-20] MEDS: risperiDONE 2 MG TABLET PO SCH ×2 (08:39→20:59)
[2021-06-20] MEDS: NICOTINE 21 MG/24HR PATCH TD SCH (08:40)
[2021-06-20] MEDS: ENSURE ENLIVE (VAN) 240 ML LIQUID PO SCH ×3 (08:40→17:26)
[2021-06-20] MEDS: IBUPROFEN 200 MG TABLET PO PRN ×2 (09:55→17:26)
[2021-06-20 16:17] VITALS: BP 107/65
--- NOTE | 2021-06-20 17:30 | NUR ---
SW SNF Contact CHEPE spoke with Tu with [facility] [address] [facility], [place] [address] ([phone]) who requested updated notes for pt. Per request, CHEPE faxed updated psychiatric notes to [phone] attention to Tu for review.
[2021-06-20 20:08] VITALS: BP 113/70
[2021-06-20] MEDS: TRAZODONE 50 MG TABLET PO SCH (20:59)
[2021-06-21] MEDS: IBUPROFEN 200 MG TABLET PO PRN ×2 (04:42→16:46)
[2021-06-21 08:02] VITALS: BP 111/69
[2021-06-21] MEDS: risperiDONE 2 MG TABLET PO SCH ×2 (08:35→20:11)
[2021-06-21] MEDS: NICOTINE 21 MG/24HR PATCH TD SCH (08:35)
[2021-06-21] MEDS: DIVALPROEX 250 MG TABLET.DR PO SCH ×3 (08:35→16:45)
[2021-06-21] MEDS: ENSURE ENLIVE (VAN) 240 ML LIQUID PO SCH ×3 (08:37→16:47)
--- NOTE | 2021-06-21 13:45 | NUR ---
SW Discharge Plan Update SW received call from facundo Jones at [address], [place] [address] ([phone]) informing pt has been accepted at the facility.
[2021-06-21 16:32] VITALS: BP 107/64
[2021-06-21] MEDS: TRAZODONE 50 MG TABLET PO SCH (20:11)
[2021-06-21 21:48] VITALS: BP 143/72
[2021-06-22] MEDS: IBUPROFEN 200 MG TABLET PO PRN (06:15)
--- NOTE | 2021-06-22 06:39 | NUR ---
Slept throughout the night. Pt pleasant and able to make needs known and able to follow directions. Denies SI or HI. Supposed to be D/C today. Safety and comfort provided. Will endorse to day shift.
[2021-06-22 07:30] VITALS: BP 120/79
[2021-06-22] MEDS: risperiDONE 2 MG TABLET PO SCH (08:35)
[2021-06-22] MEDS: NICOTINE 21 MG/24HR PATCH TD SCH (08:35)
[2021-06-22] MEDS: DIVALPROEX 250 MG TABLET.DR PO SCH (08:35)
[2021-06-22] MEDS: ENSURE ENLIVE (VAN) 240 ML LIQUID PO SCH (08:37)
--- NOTE | 2021-06-22 08:50 | NUR ---
CHEPE Discharge Note Pt will be discharged to [facility] [address] ([phone]) via Ambulance transportation at 11AM. CHEPE spoke with Ajay admin coordinator at the facility who states they are ready to accept the patient today. Pt is aware and agreeable with discharge plans. Pt is alert and oriented x2, is unable to plan for self-care at this time; however, is willing to accept care at SNF. Pt denies any suicidal or homicidal ideation. Pts maitre d'Isael with [facility] ([phone]) is has been made aware of discharge plan. Pt will follow-up at the facility with Dr. Yoon Psychiatrist and Shani Bui NP Transition Teacher. Pt presents with calm mood and congruent affect.
--- NOTE | 2021-06-22 09:02 | NUR ---
SW Brief Substance Abuse Intervention Patient was provided with a brief substance abuse intervention and referred to the following substance abuse programs: [facility] ([phone]); [facility] [address] [place] [address] ([phone]); [facility] [place] ([phone]).
--- NOTE | 2021-06-22 09:06 | NUR ---
SW Family Contact SW left a voicemail for patient's son, Fritz Sheridan ([phone]) requesting call back to discuss updated discharge plan. Waiting for a call back.
--- NOTE | 2021-06-22 09:07 | NUR ---
CHEPE [place] [employer] Contact CHEPE spoke with patient's rehabilitation case coordinator, Isael ([phone]) with [facility], to discuss updated treatment and discharge plan. CHEPE provided Isael address and phone number for [facility].
--- NOTE | 2021-06-22 11:03 | NUR ---
Received orders to discharge this patient. Pt. affect is calm, cooperative. Compliant with medicaitons. A/Pt will be discharged to [facility] [address] [place] [address] ([phone]) via Ambulance transportation at 11AM. SW spoke with [facility] admin coordinator at the facility who states they are ready to accept the patient today. Pt is aware and agreeable with discharge plans. Pt is alert and oriented x 2 -3, is unable to plan for self-care at this time; however, is willing to accept care at SNF. Pt denies any suicidal or homicidal ideation. Pts used car sales supervisorIsael with [facility] [employer] [facility] ([phone]) is has been made aware of discharge plan. Pt will follow-up at the facility with Dr. Yoon Psychiatrist and Shani Bui NP Director Of Industrial Relations. Pt presents with calm mood and congruent affect. Patient left the unit at 11:00 am.
== END 2021-06-22 11:00 | DRG 885 ==
LOC: ER 16:26 → MEDSURG3 22:06 → UNDODISIN 06-08 13:40 → GPS 06-08 13:45
PROVIDERS: ADMIT Psychiatry & Neurology Psychiatry; ATTEND Nurse Practitioner Acute Care
DX: F25.0 Schizoaffective disorder, bipolar type (principal); B19.20 Unspecified viral hepatitis C without hepatic coma; G93.41 Metabolic encephalopathy; R10.9 Unspecified abdominal pain; I10 Essential (primary) hypertension; E03.9 Hypothyroidism, unspecified; E78.5 Hyperlipidemia, unspecified; G89.29 Other chronic pain; J44.9 Chronic obstructive pulmonary disease, unspecified; K57.30 Diverticulosis of large intestine without perforation or abscess without bleeding; K76.89 Other specified diseases of liver; Z82.49 Family history of ischemic heart disease and other diseases of the circulatory system; Z90.49 Acquired absence of other specified parts of digestive tract; Z88.5 Allergy status to narcotic agent; Z88.8 Allergy status to other drugs, medicaments and biological substances; Z86.19 Personal history of other infectious and parasitic diseases; R07.9 Chest pain, unspecified
CPT/HCPCS: 36415; 71045; 80164; 83735; 85025; 93005; 97161; A4663; G0378; G0480; J1630; J1885; J3490; Q0162

== ENCOUNTER 2024-06-29 19:38 | Inpatient (IN) | payer MEDICARE, OTHER ==
[~2024-06-29] VITALS: Ht 170.2 cm; Wt 64.0 kg
[~2024-06-29 19:38] MED LIST: HYDR-501 PO; IBUP-76 PO; MAG30ORA PO; MAGN400O6 PO; MIRT-93 PO; NICO-671 TD; QUET200T PO; QUET25TA PO; TEMA15CA PO
[2024-06-29 20:03] LABS: BASOPHILS # (AUTO) 0.1 K/UL (0.0-0.2); BASOPHILS % (AUTO) 0.9 % (0.0-2.0); EOSINOPHILS # (AUTO) 0.1 K/uL (0.0-0.7); EOSINOPHILS % (AUTO) 1.1 % (0.0-7.0); HEMATOCRIT 35.5 % (31.2-41.9); HEMOGLOBIN 11.9 g/dL (10.9-14.3); LYMPHOCYTES # (AUTO) 2.2 K/uL (0.8-4.8); LYMPHOCYTES % (AUTO) 26.8 % (20.5-51.5); MEAN CORPUSCULAR HGB CONC 34 g/dL (32.3-35.6); MEAN CORPUSCULAR VOLUME 95.2 fL (75.5-95.3); MONOCYTES % (AUTO) 12.3 % (0.0-11.0); NEUTROPHILS # (AUTO) 4.7 K/uL (1.8-8.9); NEUTROPHILS % (AUTO) 58.9 % (38.5-71.5); PLATELET COUNT (AUTO) 192 K/uL (179-408); RED BLOOD CELL COUNT(AUTO) 3.72 MIL/uL (3.63-4.92); RED CELL DISTRIBUTION WIDTH 13.9 % (12.3-17.7)
[2024-06-29 20:11] LABS: DIFFERENTIAL COMMENT 1
[2024-06-29 20:14] LABS: CALCIUM 9.6 mg/dL (8.5-10.1); CARBON DIOXIDE 25 mmol/L (21-32); CHLORIDE 106 mmol/L (98-107); CREATININE 0.8 mg/dL (0.6-1.3); GLUCOSE 132 mg/dL (74-106); POTASSIUM 3.5 mmol/L (3.5-5.1); SODIUM SERUM 142 mmol/L (136-145); UREA NITROGEN, BLOOD 23 mg/dL (7-18)
[2024-06-29 20:20] LABS: ALANINE AMINOTRANSFERASE 64 U/L (14-59); ALKALINE PHOSPHATASE 95 U/L (50-136); ASPARTATE AMINOTRANSFERASE 41 U/L (15-37); BILIRUBIN,DIRECT 0.2 mg/dL (0.0-0.2); BILIRUBIN,TOTAL 0.9 mg/dL (0.2-1.0); TOTAL PROTEIN, SERUM 8.8 g/dL (6.4-8.2)
[2024-06-29 20:23] LABS: ETHANOL < 3 MG/DL (0-10)
[2024-06-29 20:23] LABS: *BILIRUBIN,URIN 1+ (NEGATIVE); *BLOOD, URINE 2+ (NEGATIVE); *COLOR,URINE YELLOW (YELLOW); *KETONES,URINE 1+ (NEGATIVE); *PROTEIN,URINE 2+ (NEGATIVE); LEUKOCYTE ESTERASE ,URINE TRACE (NEGATIVE); NITRITE, URINE NEGATIVE (NEGATIVE); PH,URINE 5.5 (5.0-8.0); UGLUCOSE NEGATIVE (NEGATIVE)
[2024-06-29 20:24] LABS: *CLARITY,URINE SLIGHTLY CLOUDY (CLEAR)
[2024-06-29 20:29] LABS: ACETAMINOPHEN < 2.0 ug/mL (10-30)
[2024-06-29 20:36] LABS: *AMPHETAMINE, URINE NEGATIVE (NEGATIVE); *BARBITURATE, URINE NEGATIVE (NEGATIVE); *BENZODIAZEPINE, URINE NEGATIVE (NEGATIVE); *CANNABINOID, URINE NEGATIVE (NEGATIVE); *COCCAINE, URINE NEGATIVE (NEGATIVE); *OPIATE, URINE NEGATIVE (NEGATIVE); *PHENCYCLIDINE SCREEN,URINE NEGATIVE (NEGATIVE); FENTANYL, URINE NEGATIVE (NEGATIVE)
[2024-06-29 20:50] LABS: BACTERIA,URINE MANY /HPF (NONE SEEN); SQUAMOUS EPITHELIAL CELL,UR FEW /HPF (NONE SEEN); WBC,URINE 20-50 /HPF (0-3)
[2024-06-29] MEDS ORDERED: QUETIAPINE FUMARATE 25 MG TABLET ONE (21:08)
[2024-06-29] MEDS ORDERED: hydrOXYzine HCL 10 MG TABLET ONE (21:09)
[2024-06-29] MEDS: hydrOXYzine HCL 25 MG TABLET PO PRN (21:12)
[2024-06-29] MEDS: QUETIAPINE FUMARATE 25 MG TABLET PO ONE (21:12)
[2024-06-29] MEDS ORDERED: CEphaleXIN 500 MG CAPSULE PO ONE (21:15)
[2024-06-29] MEDS ORDERED: CEFTRIAXONE /D5W 50ML IVPB **ER PYXIS IV ONE (21:23)
[2024-06-29] MEDS: CEFTRIAXONE 1 G in IV DEXTROSE 5% 50 ML IV ONE (21:24)
[2024-06-29] MEDS ORDERED: TRAZ-257 (21:30)
[2024-06-29] MEDS ORDERED: LEVO50CA4 PO (21:30)
[2024-06-29] MEDS ORDERED: AMLO-212 PO (21:30)
[2024-06-29] MEDS ORDERED: DICL1KIT14 TOP (21:30)
[2024-06-29] MEDS ORDERED: ACET-700 (21:30)
[2024-06-29] MEDS ORDERED: PANT40TA49 (21:30)
[2024-06-29] MEDS ORDERED: HYDR25CA PO (21:30)
[2024-06-29] MEDS ORDERED: QUET50TA24 (21:30)
[2024-06-29] MEDS ORDERED: LOSA25TA27 PO (21:30)
[2024-06-29] MEDS ORDERED: CHOL50004 PO (21:30)
[2024-06-29] MEDS ORDERED: MELO-107 PO (21:30)
[2024-06-30] MEDS ORDERED: ACETAMINOPHEN 325 MG TABLET PO PRN (00:15)
[2024-06-30] MEDS ORDERED: MAGNESIUM HYDROXIDE 30 ML LIQUID UDC PO PRN (00:15)
[2024-06-30] MEDS ORDERED: ONDANSETRON 4 MG/2 ML VIAL IV PRN (00:15)
[2024-06-30] MEDS ORDERED: REMEDY ESSENTIAL ZINC PASTE 113 GM TP PRN (00:15)
[2024-06-30 04:00] VITALS: BP 128/74; TEMP 97.9
[2024-06-30 04:10] VITALS: BP 137/79; TEMP 97.7; O2SAT 95
[2024-06-30] MEDS: IV NS 1000 ML 1,000 ML IV PRN (05:42)
[2024-06-30] MEDS: PANTOPRAZOLE SODIUM 40 MG TABLET.DR PO SCH (06:52)
[2024-06-30 06:58] LABS: BASOPHILS % (AUTO) 0.4 % (0.0-2.0); EOSINOPHILS # (AUTO) 0.2 K/uL (0.0-0.7); HEMATOCRIT 34.4 % (31.2-41.9); HEMOGLOBIN 11.9 g/dL (10.9-14.3); LYMPHOCYTES # (AUTO) 1.8 K/uL (0.8-4.8); LYMPHOCYTES % (AUTO) 22.9 % (20.5-51.5); MEAN CORPUSCULAR HEMOGLOBIN 32.7 uug (24.7-32.8); MEAN CORPUSCULAR HGB CONC 35 g/dL (32.3-35.6); MEAN CORPUSCULAR VOLUME 94.6 fL (75.5-95.3); MONOCYTES # (AUTO) 1.1 K/uL (0.1-1.30); MONOCYTES % (AUTO) 13.6 % (0.0-11.0); NEUTROPHILS # (AUTO) 4.9 K/uL (1.8-8.9); NEUTROPHILS % (AUTO) 61.1 % (38.5-71.5); PLATELET COUNT (AUTO) 185 K/uL (179-408); RED BLOOD CELL COUNT(AUTO) 3.64 MIL/uL (3.63-4.92); RED CELL DISTRIBUTION WIDTH 13.7 % (12.3-17.7); WHITE BLOOD COUNT (AUTO) 8.1 K/uL (3.8-11.8)
[2024-06-30 07:08] LABS: CALCIUM 9.3 mg/dL (8.5-10.1); CARBON DIOXIDE 25 mmol/L (21-32); CHLORIDE 107 mmol/L (98-107); CREATININE 0.6 mg/dL (0.6-1.3); GLUCOSE 95 mg/dL (74-106); MAGNESIUM 1.9 mg/dL (1.8-2.4); PHOSPHOROUS 3.3 mg/dL (2.5-4.9); POTASSIUM 3.6 mmol/L (3.5-5.1); SODIUM SERUM 142 mmol/L (136-145); UREA NITROGEN, BLOOD 17 mg/dL (7-18)
[2024-06-30 07:28] LABS: DIFFERENTIAL COMMENT 1
[2024-06-30] MEDS ORDERED: ACET325T53 PO (10:45)
[2024-06-30] MEDS ORDERED: PANTOPRAZOLE SODIUM 40 MG TABLET.DR PO SCH (10:58)
[2024-06-30] MEDS ORDERED: ACETAMINOPHEN 325 MG TABLET-SA PATIENTS-PAIN ONLY PO PRN (11:15)
[2024-06-30] MEDS: LEVOTHYROXINE SODIUM 50 MCG TABLET PO SCH (11:24)
[2024-06-30] MEDS: ACETAMINOPHEN 325 MG TABLET PO SCH (11:26)
[2024-06-30 11:54] VITALS: BP 131/83; TEMP 97.8; O2SAT 98
[2024-06-30] MEDS: LORAZEPAM 2 MG/1 ML VIAL IM PRN (14:09)
[2024-06-30] MEDS: QUETIAPINE FUMARATE 25 MG TABLET PO SCH (14:09)
[2024-06-30 15:23] VITALS: BP 124/90; TEMP 98.2; O2SAT 96
[2024-06-30 20:00] VITALS: BP 150/82; TEMP 98.3; O2SAT 95
[2024-06-30] MEDS ORDERED: QUETIAPINE FUMARATE 25 MG TABLET PO SCH (21:00)
[2024-06-30] MEDS: TRAZODONE 100 MG TABLET PO SCH (21:06)
[2024-06-30] MEDS: CEFTRIAXONE 1 G in IV DEXTROSE 5% 50 ML IV SCH (21:06)
[2024-07-01 06:24] VITALS: BP 116/62; TEMP 97; O2SAT 96
[2024-07-01] MEDS ORDERED: LEVOTHYROXINE SODIUM 50 MCG TABLET PO SCH (07:00)
[2024-07-01 07:01] LABS: BASOPHILS % (AUTO) 0.5 % (0.0-2.0); EOSINOPHILS # (AUTO) 0.2 K/uL (0.0-0.7); EOSINOPHILS % (AUTO) 4.4 % (0.0-7.0); HEMATOCRIT 33.8 % (31.2-41.9); HEMOGLOBIN 11.7 g/dL (10.9-14.3); LYMPHOCYTES # (AUTO) 1.5 K/uL (0.8-4.8); LYMPHOCYTES % (AUTO) 30.5 % (20.5-51.5); MEAN CORPUSCULAR HEMOGLOBIN 32.7 uug (24.7-32.8); MEAN CORPUSCULAR HGB CONC 35 g/dL (32.3-35.6); MEAN CORPUSCULAR VOLUME 94.5 fL (75.5-95.3); MONOCYTES # (AUTO) 0.8 K/uL (0.1-1.30); NEUTROPHILS # (AUTO) 2.5 K/uL (1.8-8.9); NEUTROPHILS % (AUTO) 49.6 % (38.5-71.5); PLATELET COUNT (AUTO) 175 K/uL (179-408); RED BLOOD CELL COUNT(AUTO) 3.58 MIL/uL (3.63-4.92); RED CELL DISTRIBUTION WIDTH 13.8 % (12.3-17.7)
[2024-07-01 07:15] LABS: DIFFERENTIAL COMMENT 1
[2024-07-01 07:17] LABS: CALCIUM 9.4 mg/dL (8.5-10.1); CARBON DIOXIDE 26 mmol/L (21-32); CHLORIDE 106 mmol/L (98-107); CREATININE 0.6 mg/dL (0.6-1.3); GLUCOSE 103 mg/dL (74-106); PHOSPHOROUS 3.3 mg/dL (2.5-4.9); POTASSIUM 3.6 mmol/L (3.5-5.1); SODIUM SERUM 141 mmol/L (136-145); UREA NITROGEN, BLOOD 14 mg/dL (7-18)
[2024-07-01] MEDS: LOSARTAN POTASSIUM 25 MG TABLET PO SCH (08:28)
[2024-07-01] MEDS: AMLODIPINE 5 MG TABLET PO SCH (08:28)
[2024-07-01 11:20] VITALS: BP 133/79; TEMP 98.4; O2SAT 92
[2024-07-01 15:02] VITALS: BP 109/64; TEMP 97.7; O2SAT 94
[2024-07-01 16:44] LABS: BAND % (MANUAL) 4 % (0-10); EOSINOPHILS % (MANUAL) 3 % (0-8); LYMPHOCYTES % (MANUAL) 26 % (20-40); MONOCYTES % (MANUAL) 16 % (2-10); NEUTROPHILS % (MANUAL) 50 % (42-75)
[2024-07-01 16:45] LABS: PLATELET ESTIMATE DECREASED
[2024-07-01 20:26] VITALS: BP 127/74; TEMP 98.3; O2SAT 94
[2024-07-01] MEDS: MIRTAZAPINE 15 MG TABLET PO SCH (20:41)
[2024-07-02 04:00] VITALS: BP 151/84; TEMP 98.2; O2SAT 98
[2024-07-02 11:07] VITALS: BP 136/78; TEMP 98.4; O2SAT 97
[2024-07-02] MEDS ORDERED: MIRT-93 PO (11:25)
[2024-07-02] MEDS ORDERED: CEPH500C2 PO (11:25)
[2024-07-02 15:08] VITALS: BP 144/70; TEMP 97.8; O2SAT 96
== END 2024-07-02 18:46 | DRG 689 ==
LOC: ER 19:45 → MEDSURG3 06-30 00:10
PROVIDERS: ADMIT Nurse Practitioner Family; ATTEND Internal Medicine
DX: N39.0 Urinary tract infection, site not specified (principal); G93.41 Metabolic encephalopathy; J44.9 Chronic obstructive pulmonary disease, unspecified; R79.89 Other specified abnormal findings of blood chemistry; K21.9 Gastro-esophageal reflux disease without esophagitis; I10 Essential (primary) hypertension; E03.9 Hypothyroidism, unspecified; Z79.890 Hormone replacement therapy; Z79.899 Other long term (current) drug therapy; Z88.6 Allergy status to analgesic agent; Z88.5 Allergy status to narcotic agent; Z86.19 Personal history of other infectious and parasitic diseases; F25.1 Schizoaffective disorder, depressive type; R41.89 Other symptoms and signs involving cognitive functions and awareness; Z90.49 Acquired absence of other specified parts of digestive tract; R00.0 Tachycardia, unspecified; G24.01 Drug induced subacute dyskinesia
CPT/HCPCS: 36415; 70030-TC; 83735; 84100; 85025; A4663; G0378; G0480; J0696; J2060; J7040

== ENCOUNTER 2024-07-02 20:00 | Inpatient (IN) | payer MEDICARE, OTHER ==
[~2024-07-02] VITALS: Ht 154.9 cm; Wt 63.5 kg
[~2024-07-02 20:00] MED LIST changes: +ACET325T53 PO; +AMLO-212 PO; +CEPH500C2 PO; +CHOL50004 PO; +DICL1KIT14 TOP; -HYDR-501 PO; +HYDR25CA PO; -IBUP-76 PO; +LEVO50CA4 PO; +LOSA25TA27 PO; -MAG30ORA PO; -MAGN400O6 PO; +MELO-107 PO; -NICO-671 TD; +PANT40TA49; -QUET200T PO; -QUET25TA PO; +QUET50TA24; -TEMA15CA PO; +TRAZ-257
[2024-07-02] MEDS ORDERED: REMEDY ESSENTIAL ZINC PASTE 113 GM TOP PRN (20:30)
[2024-07-02] MEDS ORDERED: MAGNESIUM HYDROXIDE 30 ML LIQUID UDC PO PRN (20:30)
[2024-07-02] MEDS ORDERED: LORAZEPAM 1 MG TABLET PO PRN ×2 (20:30)
[2024-07-02] MEDS: TEMAZEPAM 7.5 MG CAPSULE PO PRN (22:31)
[2024-07-03] MEDS: LEVOTHYROXINE SODIUM 50 MCG TABLET PO SCH (06:38)
[2024-07-03] MEDS: PANTOPRAZOLE SODIUM 40 MG TABLET.DR PO SCH (06:38)
[2024-07-03 08:10] VITALS: BP 90/65; TEMP 98; O2SAT 100
[2024-07-03] MEDS: QUETIAPINE FUMARATE 25 MG TABLET PO SCH (08:39)
[2024-07-03] MEDS: LOSARTAN POTASSIUM 25 MG TABLET PO SCH (08:40)
[2024-07-03] MEDS: AMLODIPINE 5 MG TABLET PO SCH (08:41)
[2024-07-03] MEDS ORDERED: HYDROXYZINE PAMOATE 25 MG CAPSULE PO PRN (09:30)
[2024-07-03] MEDS ORDERED: ACETAMINOPHEN 325 MG TABLET PO PRN ×2 (09:30→12:45)
[2024-07-03] MEDS: CEphaleXIN 500 MG CAPSULE PO SCH (13:49)
[2024-07-03 16:02] VITALS: BP 142/99; TEMP 98; O2SAT 100
[2024-07-03 20:00] VITALS: BP 125/94; TEMP 97.8; O2SAT 95
[2024-07-03] MEDS: MIRTAZAPINE 15 MG TABLET PO SCH (20:19)
[2024-07-03] MEDS ORDERED: MIRTAZAPINE 15 MG TABLET PO SCH (21:00)
[2024-07-04] MEDS ORDERED: PANTOPRAZOLE SODIUM 40 MG TABLET.DR PO SCH (06:00)
[2024-07-04] MEDS ORDERED: LEVOTHYROXINE SODIUM 50 MCG PO SCH (06:30)
[2024-07-04 08:04] VITALS: BP 145/84; TEMP 98.6; O2SAT 100
[2024-07-04] MEDS: MELOXICAM 7.5 MG TABLET PO SCH (09:36)
[2024-07-04] MEDS: AMLODIPINE 5 MG TABLET PO SCH (09:37)
[2024-07-04] MEDS: LOSARTAN POTASSIUM 25 MG TABLET PO SCH (09:37)
[2024-07-04 16:04] VITALS: BP 151/99; TEMP 98; O2SAT 100
[2024-07-04 20:31] VITALS: BP 114/92; TEMP 98.1; O2SAT 97
[2024-07-04] MEDS: TEMAZEPAM 7.5 MG CAPSULE PO PRN (23:58)
[2024-07-05 08:14] VITALS: BP 135/84; TEMP 98; O2SAT 99
[2024-07-05 16:04] VITALS: BP 146/95; TEMP 97.6; O2SAT 100
[2024-07-05 20:00] VITALS: BP 138/71; TEMP 97.8; O2SAT 98
[2024-07-06 16:06] VITALS: BP 148/81; TEMP 98; O2SAT 100
[2024-07-06] MEDS ORDERED: MAGNESIUM HYDROXIDE 30 ML LIQUID UDC PO PRN (20:00)
[2024-07-06] MEDS ORDERED: MAG HYDROX/AL HYDROX/SIMETH 30 ML LIQUID UDC PO PRN (20:00)
[2024-07-06] MEDS ORDERED: LORAZEPAM 0.5 MG TABLET PO PRN ×3 (20:00→20:45)
[2024-07-06] MEDS ORDERED: TEMAZEPAM 7.5 MG CAPSULE PO PRN ×3 (20:00→20:45)
[2024-07-06] MEDS ORDERED: BLOOD SUGAR DIAGNOSTIC 1 EACH STRIP VI ONE (20:00)
[2024-07-06 20:08] VITALS: BP 150/78; TEMP 98.2; O2SAT 99
[2024-07-06] MEDS: MAG HYDROX/AL HYDROX/SIMETH 30 ML LIQUID UDC PO PRN (21:44)
[2024-07-07 08:06] VITALS: BP 141/81; TEMP 98.6; O2SAT 98
[2024-07-07 16:10] VITALS: BP 138/51; TEMP 98; O2SAT 100
[2024-07-07 19:51] VITALS: BP 103/68; TEMP 98.1; O2SAT 98
[2024-07-08 09:38] VITALS: BP 128/68; TEMP 98.2; O2SAT 100
[2024-07-08 16:01] VITALS: BP 140/72; TEMP 98.2; O2SAT 0
[2024-07-08 19:55] VITALS: BP 131/70; TEMP 98.1; O2SAT 97
[2024-07-09] MEDS: CLONAZEPAM 0.5 MG TABLET PO PRN (00:05)
[2024-07-09] MEDS ORDERED: TEMAZEPAM 7.5 MG CAPSULE PO PRN (06:30)
[2024-07-09 08:08] VITALS: BP 137/77; TEMP 98.1; O2SAT 98
[2024-07-09 16:04] VITALS: BP 124/70; TEMP 98.4; O2SAT 96
[2024-07-09] MEDS: IBUPROFEN 600 MG TABLET PO PRN (18:34)
[2024-07-09 20:00] VITALS: BP 126/70; TEMP 98; O2SAT 99
[2024-07-09] MEDS: TEMAZEPAM 15 MG CAPSULE PO PRN (23:14)
[2024-07-10 07:52] VITALS: BP 120/81; TEMP 98; O2SAT 98
[2024-07-10 15:15] VITALS: BP 130/76; TEMP 98; O2SAT 98
[2024-07-10 19:52] VITALS: BP 124/71; TEMP 98.5; O2SAT 96
[2024-07-11 08:06] VITALS: BP 98/65; TEMP 98; O2SAT 98
[2024-07-11 17:39] VITALS: BP 122/76; TEMP 98; O2SAT 0
[2024-07-11 20:07] VITALS: BP 120/73; TEMP 98.4; O2SAT 97
[2024-07-12 08:56] VITALS: BP 113/81; TEMP 98; O2SAT 98
[2024-07-12 15:09] VITALS: BP 124/79; TEMP 98; O2SAT 98
[2024-07-12 20:20] VITALS: BP 121/74; TEMP 98; O2SAT 96
[2024-07-13 08:06] VITALS: BP 137/89; TEMP 98.1; O2SAT 98
[2024-07-13 16:06] VITALS: BP 132/61; TEMP 98.3; O2SAT 96
[2024-07-13 20:00] VITALS: BP 113/72; TEMP 98.3; O2SAT 95
[2024-07-14 08:04] VITALS: BP 137/74; TEMP 98.2; O2SAT 100
[2024-07-14 16:09] VITALS: BP 122/61; TEMP 97.6; O2SAT 100
== END 2024-07-14 18:40 | DRG 885 ==
LOC: GPS 20:00
PROVIDERS: ADMIT Psychiatry & Neurology Psychiatry; ATTEND Internal Medicine
DX: F25.1 Schizoaffective disorder, depressive type (principal); N39.0 Urinary tract infection, site not specified; F03.94 Unspecified dementia, unspecified severity, with anxiety; F03.918 Unspecified dementia, unspecified severity, with other behavioral disturbance; B96.20 Unspecified Escherichia coli [E. coli] as the cause of diseases classified elsewhere; Z91.81 History of falling; K21.9 Gastro-esophageal reflux disease without esophagitis; E03.9 Hypothyroidism, unspecified; J44.9 Chronic obstructive pulmonary disease, unspecified; M62.81 Muscle weakness (generalized); I10 Essential (primary) hypertension; Z79.899 Other long term (current) drug therapy; Z88.5 Allergy status to narcotic agent; Z88.6 Allergy status to analgesic agent; R79.89 Other specified abnormal findings of blood chemistry; R10.84 Generalized abdominal pain
CPT/HCPCS: 36415; 74150